=== PATIENT | female | born 1935 | race Caucasian/White ===

== ENCOUNTER 2017-01-08 10:02 | Inpatient (IN) | payer MEDICARE ==
[~2017-01-08] VITALS: Ht 162.6 cm; Wt 99.6 kg
[2017-01-08 12:00] VITALS: BP 109/65; PULSE 93; RESP 23; O2SAT 92
[2017-01-08 12:12] VITALS: PULSE 86
[2017-01-08] MEDS ORDERED: Ondansetron 2 mg/mL 2 mL Inj IVPUSH PRN (12:50)
[2017-01-08] MEDS ORDERED: Polyethylene Glycol (PEG) 17 Gm Powder PO PRN (12:50)
[2017-01-08] MEDS ORDERED: Alum-Mag Hydrox-Simeth 30 mL Suspension PO PRN (12:50)
--- NOTE | 2017-01-08 12:59 | PCM.HPMED ---
Subjective Date of Service January 08, 2017 Primary Provider: Admitting Physician: Roderick Levine DO Primary Care Physician: Bari Monson MD Attending Physician: Roderick Levine DO Chief Complaint: Need for dialysis History of Present Illness: 81 yo F presenting on transfer from [facility] following admission for mastectomy revision which was complicated by cardiac arrest and subsequent renal failure. Patient was initially started on epinephrine, and subsequently dopamine, both of which and effectively controlled blood pressures then led to development of ventricular tachycardia. She was additionally noted over the past 2 days to have progressively worsening renal function, brought to transition to dobutamine which was effective in controlling blood pressure without complicating arrhythmia but has not appeared to have increased urine output as of yet. Due to this [facility]'s on-call caseworker protective services Dr. Zavala was contacted and recommended transfer to [facility] for possible hemodialysis should renal function continue to worsen. Patient arrived to hospital in stable condition, still on dobutamine drip in addition to heparin drip started 2 days prior following cardiac arrest. He has no complaints at this time aside from shortness of breath, present at baseline but a little worse than usual. She also notes being a little more tired than her usual self but overall feeling relatively well. Patient additionally suffer CHF at baseline, but has ECHO as part of pre- surgical screening demonstrating normal EF, subsequent to cardiac arrest repeat echo demonstrated an EF reduced to 20%. Dr. Johnson reviewed Echo and Dr Reddy subsequently evaluated patient. In spite of elevated troponin values, it was felt global ischemia rather than ACS was to account for this, and medical management with Heparin drip was recommend. Furthermore the trademark attorney at [place] did not deem patient is a candidate for catheterization, even should this be indicated. Conversation with transferring hospitalist from [place] Dr. Calderon, indicated plan was for ~48 hours of Heparin therapy prior to DC, which would be concluding this afternoon. Review of Systems: 10 point review of systems was conducted and entirely negative excepting pertinent positives and negatives included in above history of present illness Allergies Coded Allergies: gabapentin (Verified Allergy, Intermediate, diarreha, 01/08/17) codeine (Verified Allergy, Unknown, SLEEPY, 06/17/09) procaine (Verified Allergy, Unknown, NEAR-SYNCOPE, 06/17/09) Uncoded Allergies: CORTISONE (Allergy, Unknown, PASS OUT, 06/17/09) Home Medications Carvedilol 3.125mg PO BID Combivent 2 puffs 4 times daily PRN Estradiol 0.025mg patch weekly Lisinopril 5mg PO daily Torsemide 100mg PO BID Prilosec 20mg PO daily Triazolam 0.25mg 1/2 tab PO QHS Warfarin 2.5mg except Mondays and Fridays PMH Atrial Fibrillation CAD CHF Pulmonary hypertension Poliomyolitis Breast cancer GERD Surgical History Cataract surgery Tonsillectomy Adendectomy Right mastectomy 1968 Left Mastectomy 07/2016 Dilation of esophageal stricture after GERD Appendectomy Hysterectomy and mass excision from the Back Family History Mother has breast cancer, patient had breast cancer prior to her mother's development. Social History Hx Alcohol Use: No Hx Substance Use: No Hx Tobacco Use: No Smoking Status: Never Smoker Living Arrangement: with Family Exam Vital Signs Vital Sign - Last Date Time Temp Pulse Resp B/P Pulse Ox O2 Delivery O2 Flow Rate FiO2 01/08/17 12:12 86 01/08/17 12:00 36.4 23 109/65 92 Nasal Cannula 2.00 General: Alert, Oriented X3, Cooperative, Mild Distress Eyes: PERRLA, EOMI Mouth: Mucous Membranes Dry, Other (there is some bruising erythema posterior pharynx likely secondary to intubation) Chest & Lungs: Coarse breath sounds, Other (good airflow noted in all lung fitch no wheezing crackles or rhonchi noted. Chest wall demonstrating bilateral deformity due to previous mastectomy. Right side is concave with pectoralis muscles removed, no open lesions or signs of infection. Left side is now status post failed mastectomy with drain in place surgical closure covered by clean dry dressing. All this for small amount of serosanguineous liquid.) Cardiovascular: Other (borderline rate of around 100 bpm irregular rhythm) Abdomen: Non-tender, Other (mildly distended without organomegaly. No guarding ) Extremities: No cyanosis/clubbing/edma bilat Neurological: Grossly Neurologically Intact Assessment & Plan 81-year-old female past medical history significant atrial fibrillation, CHF, ulnar hypertension in addition to breast cancer bilaterally with recent revision of mastectomy complicated by cardiac arrest, hypotension, and subsequent acute renal failure admitted on transfer from [facility] for further medical management and possible dialysis should renal function continued to decline. #. Cardiac arrest/ cardiogenic shock - Before meals status post intubation, pressure trials with epinephrine and dopamine prior to stabilization on dobutamine which is continued at time of admission - Patient previously intubated now saturating well on room air with minimal submental oxygen support - Continue dobutamine at this time with plan to wean to goal map of 60-65 may be discontinued at that time should this be achieved. - Patient had been started on heparin drip at time of arrest, now 48 hours since initiation, held at this time. Cardiology is consulted, Dr Andrade to evaluate patient, awaiting further recommendation. - Heparin drip is still active at time of admission, however as per transferring physician was to be continued only 48 hours on trademark attorney recommendation which will be completed this afternoon. #. Acute on chronic renal disease - Patient reported baseline is a creatinine of approximately 1.5, currently upper trending to 3.2 based on history awaiting records confirmation during time of admission. - We will continue dobutamine at this time plan to taper off with stable blood pressure - Dr. Zavala has except a consult and will evaluate patient further to consider additional interventions - Avoid nephrotoxic agents at this time, hold patient's home lisinopril. #. Congestive heart failure with acute reduced ejection fraction - Continue home medications accepting ACEi, Heparin active with transport now held. - Plan to restart Coumadin therapy with if Heparin to be discontinued - Cardiology consult ordered and pending, appreciate recommendations. - Diuresis to be considered as needed - Supplemental oxygen therapy as needed #Atrial fibrillation - Patient is now essentially rate controlled even with use of pressor agent - Continue home medications at this time - Monitor on continuous telemetry - Restart Warfarin per pharmacy as noted above #Breast cancer status post recent left revision of mastectomy - Drain remains in place, small amount of serosanguineous fluid draining. - We will consider further surgical consultation if needed, awaiting complete records from [facility] to determine surgical recommendations. Pain Evaluation: Adequate Pain Control VTE Prophylaxis: Sub-Q Heparin (Unfractionated), Other (currently on heparin drip, will continue subcutaneous heparin following discontinuation. ) Resuscitation Status: CPR: Attempt Resuscitation Time spent 65 minutes Roderick Levine DO January 08, 2017 12:59
[2017-01-08] MEDS ORDERED: Heparin 25,000 Unit/500 mL 0.45% NS Premix IV ONE (13:26)
[2017-01-08] MEDS ORDERED: TORS5TAB5 PO (13:29)
[2017-01-08] MEDS ORDERED: LISI-571 PO (13:29)
[2017-01-08] MEDS ORDERED: CARV3.122 PO (13:29)
[2017-01-08] MEDS ORDERED: TORS100T3 PO (13:29)
[2017-01-08] MEDS ORDERED: ESTR1PAT80 TRANSDERM (13:29)
[2017-01-08] MEDS ORDERED: IPRA4AER IH (13:29)
[2017-01-08] MEDS ORDERED: WARF2.5T82 PO (13:31)
[2017-01-08] MEDS ORDERED: OMEP20TA24 PO (13:31)
[2017-01-08] MEDS ORDERED: TRIA0.2525 PO (13:31)
[2017-01-08] MEDS ORDERED: DORZ10DR20 OP (13:48)
[2017-01-08] MEDS ORDERED: LATA2.5D6 OP (13:48)
[2017-01-08] MEDS: HYDROcodone-APAP 5-325 mg Tablet PO PRN ×2 (15:02→22:10)
[2017-01-08] MEDS ORDERED: Bumetanide 0.25 mg/mL 4 mL Inj IV ONE (16:25)
[2017-01-08 16:35] VITALS: BP 129/79; PULSE 98; RESP 24; O2SAT 98
[2017-01-08 16:57] LABS: BASOPHILS % (AUTO) 0.2 % (0-3); EOSINOPHILS % (AUTO) 0.3 % (0-5); MONOCYTES % (AUTO) 16.1 % (4-12); Mean Corpuscular Hemoglobin 29.8 pg (27.0-35.0); Mean Corpuscular Volume 96.8 fL (81-100); NEUTROPHILS % (AUTO) 78.9 % (40-74); Platelet Count 113 bil/L (150-400)
[2017-01-08 17:31] LABS: Phosphorus 4.6 mg/dL (2.5-4.9)
--- NOTE | 2017-01-08 17:36 | DRSVH ---
PROCEDURE: X-RAY CHEST ONE VIEW, PORTABLE ([id number]) INDICATIONS: CHF TECHNIQUE: One view of the chest was acquired. COMPARISON: None. FINDINGS: Surgical changes and devices: Right-sided PICC line is with distal tip overlying the proximal SVC. Lungs and pleura: Bilateral costophrenic angle blunting is present. Chronic interstitial changes are present. There is a mild appearance of increased pulmonary vascularity. Mediastinum: Mediastinal contours appear normal. Heart size is enlarged. Bones and chest wall: No suspicious bony lesions. Overlying soft tissues appear unremarkable. IMPRESSION: Mild increased pulmonary vascularity with trace effusions suggestive of edema. Cardiomega ly is present. Dictated by: Kristen Augustin M.D. on 01/08/2017 at 17:34 Approved by: Kristen Augustin M.D. on 01/08/2017 at 17:35
[2017-01-08 17:45] LABS: TROPONIN T 0.132 ug/L (0.0-0.011)
[2017-01-08 18:19] LABS: INR 1.51 ratio
--- NOTE | 2017-01-08 18:25 | PCM.CHPCAR ---
Consult Subjective Date of service January 08, 2017 Date of admit January 08, 2017 at 12:18 Provider Requesting Consult Requesting Provider: Roderick Levine DO Primary Care Physician Primary Care Physician: Bari Monson MD Chief Complaint Cardiac arrest History of Present Illness This is a very pleasant 81-year-old female with history of paroxysmal atrial fibrillation, polymyositis. She denies she has any history of coronary disease or congestive heart failure. However she does take chronic high dose of torsemide on a daily basis. She is on warfarin for her atrial fibrillation. She sees a air gun operator at [facility]. She was last seen by him about a week before her elective surgery for reconstructive surgery of her left status post mastectomy. The patient apparently had an echocardiogram prior to her surgery and she was told that her heart function was normal. The patient denied any history of PND, orthopnea, but did have some slight worsening of her lower extremity edema just prior to her surgery. She also denied any chest pain or exertional shortness of breath just prior to her surgery. She states that she was feeling pretty well. The patient is recently had her mastectomy back in July 2016 without any complications. The patient went for her reconstructive surgery of her skin fold of the left axilla. During her surgery she apparently developed severe bradycardia and became pulseless. CPR was initiated and the patient's pulses were restored. Her wound area was then rapidly close but toward the end of the surgery she developed another episode of bradycardia and required chest compressions and additional medical therapies. At this time I do not have access to the anesthesiologist notes her EKG strips. Her pulse was regained with a heart rate of 50 bpm. Hospitalist was consulted and the patient was transferred to ICU. Apparently the patient was placed on epinephrine drip and she was continued on ventilation. An echocardiogram was performed which apparently was a poor quality echocardiogram. Nevertheless there appear to be a severe reduction in her left ventricular systolic function with an estimated ejection fraction of 20%. The right ventricle was not clearly visualized but appear to be dilated with reduced right ventricular systolic function. She has no significant valvular disease except for moderate tricuspid regurgitation. There is evidence for severe right ventricular systolic pressures with estimated RV systolic pressures estimated at 75 mmHg. Again I do not have any prior echocardiogram for comparison. Apparently she developed significant arrhythmias with norepinephrine and she was started on or switched over to dobutamine. Since then she has maintained pretty good blood pressure and her atrial fibrillation has been fairly controlled. Unfortunately she has developed acute renal failure most likely related to her transient severe hypotension and decreased cardiac output. She is been seen by her help desk operator and apparently she has been informed that they will continue to watch and see and decide if she needs to have hemodialysis. Patient appears to be very comfortable at this point in time. She is able to converse in complete sentences and has no complaints at this time. We will try and obtain her EKGs around the time of her CPR. We will also try to obtain more notes from her prior air gun operator at [facility]. Review of Systems Review of Systems CONSTITUTIONAL: Negative for fever, weight loss or weight gain. HEENT: Eyes: Negative for glaucoma or cataracts. Ears: Negative pain or loss of hearing. Nose: Negative for nasal congestion. Negative for rhinorrhea or postnasal drip. Mouth: Negative for false teeth. Throat: Negative for masses or hoarseness. Negative for snoring. CARDIOVASCULAR: Negative for chest pain or palpitations, near syncope, syncope, PND, or orthopnea. RESPIRATORY: Negative for shortness of breath, hemoptysis, COPD, cough. GASTROINTESTINAL: Negative for nausea, vomiting, diarrhea or heartburn. GENITOURINARY: Negative for dysuria. MUSCULOSKELETAL: Positive for osteoarthritis. SKIN: Negative for rashes. NEUROLOGIC: Negative for headaches, blurry vision, CVA, mental status changes. PSYCHIATRIC: Negative for depression. Negative for daytime sleepiness or insomnia. ENDOCRINE: Negative for diabetes or thyroid abnormalities. HEMATOLOGIC: Positive for anemia. PMH Past Medical History 1. Atrial fibrillation 2. Outside notes from [facility] suggest she has history of coronary artery disease and congestive heart failure but she denies having these. 3. Hypertension 4. COPD 5. GERD Past Surgical History 1. Cataract surgery 2. Tonsillectomy and adenoidectomy 3. Right mastectomy in 1967 4. Left mastectomy in July 2016 5. Dilatation of esophageal stricture 6. Appendectomy 7. Hysterectomy 8. Mass excision from the back Scheduled Albuterol/Ipratropium (Combivent Respimat Inhal Novi) 120 Spr/4 Gm Inhaler 1 PUFF IH QID (Reported) Carvedilol (Carvedilol) 3.125 Mg Tablet 3.125 MG PO BID (Reported) Dorzolamide HCl/Timolol Maleat (Dorzolamide-Timolol Eye Drops) 10 Ml Drops 1 GTT OP BID (Reported) Latanoprost (Latanoprost) 2.5 Ml Drops 1 GTT OP HS (Reported) Lisinopril (Lisinopril) 5 Mg Tablet 5 MG PO DAILY (Reported) Omeprazole Magnesium (Prilosec Otc) 20 Mg Tablet.dr 20 MG PO DAILY (Reported) Torsemide (Torsemide) 100 Mg Tablet 100 MG PO BID (Reported) Warfarin Sodium (Warfarin Sodium) 2.5 Mg Tablet 2.5 MG PO DAILY (Reported) Scheduled PRN Triazolam (Triazolam) 0.25 Mg Tablet 0.25 MG PO HS PRN PRN sleep (Reported) Discontinued Medications Estradiol 0.025 mg/24 hr Patch (Estradiol 0.025 mg/24 hr Patch) 1 Each Patch.tdwk 1 PATCH TRANSDERM WEEKLY (Reported) Torsemide (Torsemide) 5 Mg Tablet 5 MG PO DAILY (Reported) Current Inpatient Medications Current Medications Al Hydrox/Mg Hydrox/Simethicone 30 ml Q6H PRN PO; Start 01/08/17 at 12:50 Ondansetron HCl 4 to 8 mg Q4H PRN IVPUSH; Start 01/08/17 at 12:50 Senna 17.2 mg BID PRN PO; Start 01/08/17 at 12:50 Polyethylene Glycol 17 gm DAILY PRN PO; Start 01/08/17 at 12:50 Acetaminophen/ Hydrocodone Bitart 1-2 TABS Q4H PRN PO Last administered on 01/08t 15:02; Admin Dose 1 TABLET; Start 01/08/17 at 12:50 Morphine Sulfate 1-2 mg Q4H PRN IV; Start 01/08/17 at 12:50 Albuterol/ Ipratropium 3 ml QIDRT NEB; Start 01/08/17 at 16:00 Carvedilol 3.125 mg BID PO; Start 01/08/17 at 20:30 Dorzolamide/ Timolol 1 drp BID BOTH_EYES; Start 01/08/17 at 20:30 Latanoprost 0.067 drop HS BOTH_EYES; Start 01/08/17 at 21:00 Pantoprazole 20 mg 0630 PO; Start 01/09/17 at 06:30 Torsemide 100 mg BID PO; Start 01/08/17 at 20:30; Stop 01/08/17 at 20:30; Status DC Temazepam 15 mg 15 mg HS PRN PO; Start 01/08/17 at 15:45 Dobutamine HCl/ Dextrose/Premix 250 ml @ 7.2 mls/hr Q24H IV; Start 01/08/17 at 17:10 Pharmacy Consult 1 ea DAILY@17 XX; Start 01/09/17 at 17:00 Allergies: Coded Allergies: gabapentin (Verified Allergy, Intermediate, diarreha, 01/08/17) codeine (Verified Allergy, Unknown, SLEEPY, 06/17/09) procaine (Verified Allergy, Unknown, NEAR-SYNCOPE, 06/17/09) Uncoded Allergies: CORTISONE (Allergy, Unknown, PASS OUT, 06/17/09) Family History Family History Noncontributory Social History Hx Alcohol Use: NoAlcoholic Drinks Per Day: ONEHx Substance Use: NoHx Tobacco Use: No Smoking Status: Never Smoker Living Arrangement: with Family Other ( and has 3 daughters and one stepson and one stepdaughter) Exam Vital Signs Vital Sign - Last Date Time Temp Pulse Resp B/P Pulse Ox O2 Delivery O2 Flow Rate FiO2 01/08/17 16:35 36.7 98 24 129/79 98 Nasal Cannula 2.00 General: Pleasant Cooperative Mildly obese Skin: Warm & dry to touch Head: Normocephalic Eye: EOMS intact No arcus or xanthelasma Neck: Nuchal obesity:JVP assess difficult Ears, Nose & Throat: Ears no gross abnormalities Nose no gross abnormalities Chest: Clear auscultation w/o rales/wheeze Cardiac: Irregularly irregular rhythm Systolic murmur Pulses: Pulses full/equal all extremities Abdomen: Soft, non-distended, non-tender Obese Extremities: Warm w/o deformities,erythema noted Neurological: Alert & oriented No gross motor or sensory deficits Psychological: Affect & interaction appropriate Lab and Diagnostics Result Diagram: 01/08/17 1649 01/08/17 1649 Assessment & Plan Problems: (1) Cardiac arrest as complication of care Plan: Resolved but etiology still unknown. It is possibility that she probably does have chronic systolic heart failure that she is not fully aware of. We are in the process of trying to obtain more information from her primary air gun operator from [facility]. She also has right systolic heart failure with severe pulmonary hypertension. According to notes she has history of chronic pulmonary hypertension but again I am not sure if this is acute on chronic versus just chronic pulmonary hypertension. If she does have chronic and severe pulmonary hypertension she is probably preload dependent and sometimes these patients can become significantly hypotensive with general anesthesia. She does not give much in way of any symptoms prior to her surgery that was suggest pulmonary embolism. She was on warfarin prior to her surgery but was placed on hold prior to her surgery. But, certainly this should be part of the differential diagnosis. She is saturating quite well on room air. Less likely that this is acute coronary syndrome. Her elevated troponins are most likely a result of her acute renal failure and demand ischemia. She has no EKG changes and denies any chest pain prior or after her CPR. Echo report makes no mention of focal wall motion abnormalities. Status: Acute ICD Code: XSP0115 (2) Acute systolic heart failure Plan: Unfortunately we still do not have all of her information. It is possible that she has had chronic systolic heart failure with acute on chronic congestive heart failure. Will need to try to get more from administration from her previous air gun operator at [facility]. We are trying to obtain the anesthesiologist's notes an EKG strips during the event. Right now she appears to be tolerating low-dose dobutamine infusion to maintain him a pretty good MAP. I will hold off of any of her blood pressure medications for now. Status: Acute ICD Code: I50.21 (3) Elevated troponin Plan: Most likely result of stress-induced and acute renal failure. Status: Acute ICD Code: R74.8 (4) Acute renal failure due to tubular necrosis Plan: Most likely is acute tubular necrosis secondary to hypotension during multiple CPRs. Hopefully this will correct itself over the next 2-3 days. Tar Heat Exchanger Cleaner is following. Status: Acute ICD Code: N17.0 (5) Atrial fibrillation Qualifiers: Atrial fibrillation type: paroxysmal Qualified Code: I48.0 - Paroxysmal atrial fibrillation Plan: Plan to restart warfarin. Status: Chronic ICD Code: I48.91 Pain Evaluation: Adequate Pain Control VTE Prophylaxis: Sub-Q Heparin (Unfractionated), Other (currently on heparin drip, will continue subcutaneous heparin following discontinuation. ) Resuscitation Status: CPR: Attempt Resuscitation Time spent 80 minutes David Andrade MD January 08, 2017 18:25
[2017-01-08 19:34] VITALS: BP 117/44; PULSE 85; RESP 27; O2SAT 96
[2017-01-08] MEDS: Albuterol-Ipratropium 3 mL Inhalation Solution NEB SCH (20:00)
[2017-01-08] MEDS: Timolol-Dorzolamide 10 mL Ophthalmic Solution BOTH_EYES SCH (20:12)
[2017-01-08] MEDS: DOBUTamine 500 mg/250 D5W 500,000 MCG in IV Premix 1 EACH IV SCH (20:14)
[2017-01-08 21:31] LABS: APPEARANCE,URINE CLOUDY (CLEAR,HAZY); COLOR,URINE BLOODY (YELLOW); OCCULT BLOOD,URINE LARGE (NEGATIVE); PH,URINE 6.5 (5.0-8.0)
[2017-01-08 23:26] VITALS: BP 120/91; PULSE 91; RESP 23; O2SAT 97
[2017-01-09] VITALS (14 sets, daily range): BP systolic 101–119; BP diastolic 44–68; PULSE 63–126; RESP 19–25; O2SAT 92–100
[2017-01-09] MEDS: Pantoprazole 20 mg ER24 Tablet PO SCH (05:57)
[2017-01-09] MEDS ORDERED: Bumetanide 0.25 mg/mL 4 mL Inj IV ONE (06:00)
--- NOTE | 2017-01-09 06:42 | NUR ---
Cardiac/Pain Pt reports chest pain tolerable after dose of Vicodin. Pt slept most of the night after Vicodin. Left chest dressing changed with moderate amount of sanguineous drainage. Moderate amount of drainage on the pad as well. LIZZIE drain has only 15 cc output of yellow drainage with few blood clots. Jaeger patent with 60 cc of dark red urine noted. Dobutamine at 2 mcg/kg/min. Sbp in low 100s-120s and DBP 40s-60s. Map >60. 02sat in mid 90s with 3L. Temp Max 37.4.
--- NOTE | 2017-01-09 06:52 | CONS ---
[address] [address] CONSULTATION REPORT PATIENT: JUAN F SELLERS : 1935 MR#: [id number] ADMIT: 01/08/2017 JOB ID: [id number] NEPHROLOGY CONSULTATION: DATE OF SERVICE: 01/08/2017 REQUESTING PHYSICIAN: Roderick Levine MD REASONS FOR CONSULTATION: Management of acute kidney injury. CHIEF COMPLAINT: Abnormal kidney function. Transferred from [facility]. PRESENT ILLNESS: This is a very pleasant, 81-year-old, lady, with significant past medical history of atrial fibrillation, hypertension, chronic lung disease, who was transferred from [facility] for a higher level of care. The patient was admitted at [facility] for reconstruction of the left breast given history of painful skin fold of the left axilla. She underwent this surgery on January 06, 2017. At the end of the surgery, the patient developed severe bradycardia. CPR was initiated. They were able to get her pulse back. Unfortunately, she had a 2nd cardiac arrest and the 2nd CPR was resumed. The patient afterwards was transferred to the intensive care unit. Apparently, echocardiogram shows severe left ventricular systolic dysfunction with ejection fraction of 20%. Also noted to have a dilated right ventricle with reduced right ventricular systolic function, severe biatrial enlargement, moderate tricuspid regurgitation. I discussed with the hospitalist. The patient initially was placed on epinephrine. Later on, she developed arrhythmia, and then switched to dopamine. She was unable to tolerate the dopamine. She had irregular heart rhythm. She was then switched to dobutamine. Fortunately, they were able to maintain her blood pressure. I was contacted by the hospitalist yesterday given episode of acute kidney injury. Her initial serum creatinine prior to the surgery was 1.5, and today it pawan to 3.1. She has become anuric over the past 48 hours. The patient is not aware of having kidney disease. She has a history of high blood pressure. According to her medication list, is on high-dose diuretics, torsemide 100 twice a day. She reported that she has a history of leakage valve. Prior to the surgery, she was told that she had normal heart function. After the episode of cardiac arrest, troponin was checked and it was found to be elevated, peaked at around 2. The patient was started on IV heparin drip. However, the reason of being on heparin is not clear but concerning of ischemic process. During my visit, the patient seems comfortable. Family is at the bedside. She is currently on 2 L nasal cannula with good oxygenation at 98% pulse ox. The patient denied chest pain, shortness of breath. No nausea, vomiting. No fever, no chills. Jaeger catheter was inserted since the hospitalization at [facility]. She was found to have dark gross hematuria. PAST MEDICAL HISTORY: 1. Atrial fibrillation. 2. Valvular heart disease (TR). 3. Breast cancer. 4. Hypertension. 5. Chronic lung disease, per patient, she stated that she had history of asthma, ? burrell's lung disease. 6. GERD. SURGICAL HISTORY: 1. Status post right mastectomy in 1967. 2. Status post left mastectomy in July 2016. 3. Status post appendectomy. 4. Tonsillectomy. 5. Cataract surgery. 6. Dilatation of esophageal stricture of the GERD. FAMILY HISTORY: Positive for breast cancer in the family, and CVA. SOCIAL HISTORY: Denies current use of alcohol, tobacco, or illicit drugs. MEDICATIONS: Carvedilol, Combivent, estradiol, lisinopril, torsemide, Prilosec, Warfarin. ALLERGIES: CORTISONE, CODEINE, GABAPENTIN. REVIEW OF SYSTEMS: A 14 point review of systems was performed. PHYSICAL EXAM: Vitals: Temperature 37.4, pulse 85, respiratory rate 27, blood pressure 117/44, O2 sat is 96% on nasal cannula. General appearance: Awake, alert, oriented x3. In no acute distress. HEENT : Mild pallor. No jaundice. No JVD. No lymphadenopathy. No thyroid enlargement. Heart: Irregular rhythm, tachycardic. Variable S1 systolic murmur noted. Lungs: Good air entry bilaterally. No wheezing. No rhonchi. Decreased breath sounds at bases. Abdomen: Soft, mild distention, nontender. Obese. Active bowel sounds. No hepatosplenomegaly. Extremities: Trace edema on the lower extremities. Good pedal pulses. Skin: Surgical scar noted on both upper chest. LIZZIE drain noted on the left breast. LABORATORY: WBC 10.6, hemoglobin 9.4, platelets 113. Sodium 131, potassium 4.8, chloride 95, bicarb 22, BUN 49, creatinine 3.43, sugar 136. ASSESSMENT: 1. Acute kidney injury secondary to ischemic acute tubular necrosis (ATN). 2. Status post cardiac arrest, etiology to be determined. The patient has been evaluated by a sterilization specialist. 3. Acute systolic heart failure with ejection fraction of 20%. 4. Hyponatremia. 5. Elevation of serum troponin. 6. History of atrial fibrillation. 7. History of valvular heart disease. Per renal standpoint, I will challenge with IV Bumex 2 mg x1 to see if it will enhance her urine output. Continue to maintain mean arterial pressure above 65 mmHg. Since her condition is stable, there is no indication for emergency dialysis. We will continue to monitor her volume status on a daily basis. We will repeat her renal panel in the morning. Avoid nephrotoxins, and renally dose medications. I will repeat kidney sonogram and will flush her Jaeger catheter. Thank you for allowing me to participate in the care of your patient. We will monitor along with you. LISAD
[2017-01-09] MEDS: Albuterol-Ipratropium 3 mL Inhalation Solution NEB SCH ×4 (07:00→16:09)
--- NOTE | 2017-01-09 07:09 | NUR ---
Fever/Pain/Chills Temp max 39.4. Pt started having chills and shivering this am. Md made aware with new order. Tylenol given. Temp down to 38.2 at this time. Ice pack and cold compress done. Morphine given for abd pain with some effectiveness per patient. She reported better pain relief and was comfortable after Toradol dose. Telemetry SR 80s during the evening. Pt started getting tachycardia with HR in low 100s-110s this am. Family at bedside.
[2017-01-09] MEDS: Timolol-Dorzolamide 10 mL Ophthalmic Solution BOTH_EYES SCH ×2 (07:56→22:28)
[2017-01-09 08:20] LABS: MONOCYTES % (AUTO) 17.3 % (4-12); Mean Corpuscular Hemoglobin 30.1 pg (27.0-35.0); Mean Corpuscular Volume 96.3 fL (81-100); NEUTROPHILS % (AUTO) 74.3 % (40-74); Platelet Count 114 bil/L (150-400)
[2017-01-09 08:21] LABS: BASOPHILS % (AUTO) 0.1 % (0-3); EOSINOPHILS % (AUTO) 0.8 % (0-5)
[2017-01-09 09:35] LABS: INR 1.63 ratio
--- NOTE | 2017-01-09 10:31 | PCM.PHAPRO ---
Progress Cardiac arrest Date January 09-December INR 1.5 1.63 INR change 0.13 Warf Dose 2.5 MG 2.5 Chaz Doe Pharm.D January 09, 2017 10:31
[2017-01-09] MEDS ORDERED: Albuterol 1.25 mg/3 mL Inhalation Solution NEB PRN (11:10)
[2017-01-09] MEDS ORDERED: Albuterol 2.5 mg/3 mL Inhalation Solution NEB PRN (11:45)
--- NOTE | 2017-01-09 11:58 | PCM.PNMED ---
Subjective Date of Service January 09, 2017 Subjective Shonna Buckley is an 81-year-old woman with past medical history significant atrial fibrillation, CHF, pulmonary hypertension in addition to breast cancer bilaterally with recent revision of mastectomy complicated by cardiac arrest, hypotension, and subsequent acute renal failure admitted on transfer from [facility] for further medical management and possible dialysis should renal function continued to decline. Currently under treatment for cardiogenic shock and acute renal failure. Hospital day #2. Overnight: The patient had one episode of fever. Today: The patient states she felt very short of breath this morning. She normally uses albuterol up to 4 times a day when she become short of breath. She has a cough, but this is chronic for her. She denies any dysuria. She notes a weaker appetite. The remainder of the review of systems is negative except as noted above. Exam Vital Signs Vital Sign - Last Date Time Temp Pulse Resp B/P Pulse Ox O2 Delivery O2 Flow Rate FiO2 01/09/17 07:45 89 19 100 Nasal Cannula 2.00 01/09/17 07:41 36.7 115/59 Intake and Output 01/08/17 01/08/17 01/09/17 Cumulative From/Thru 15:00 23:00 07:00 01/08/17 12:36 - 01/09/17 06:50 Intake Total 367 ml 320 ml 687 ml Output Total 70 ml 75 ml 145 ml Balance 297 ml 245 ml 542 ml Intake Oral 250 ml 200 ml 450 ml IV Total 117 ml 120 ml 237 ml Output Urine Total 50 ml 60 ml 110 ml Drainage Total 20 ml 15 ml 35 ml Exam General: Alert, Oriented X3, Cooperative, in no acute distress, laying comfortably in a hospital bed. Eyes: PERRLA, EOMI Mouth: Mucous Membranes moist Chest & Lungs: Clear to auscultation bilaterally, Chest wall demonstrating bilateral deformity due to previous mastectomy. Right side is concave with pectoralis muscles removed, no open lesions or signs of infection. Left side is now status post failed mastectomy with drain in place surgical closure covered by clean dry dressing. All this for small amount of serosanguineous liquid. Cardiovascular: irregular rhythm, mildly tachycardic rate. No murmurs. Abdomen: Non-tender, Other (mildly distended without organomegaly. No guarding) Extremities: No cyanosis/clubbing/edma bilat Neurological: Grossly Neurologically Intact IVs and Medications Medications Reviewed: Medications were reviewed in detail Lab and Diagnostics Result Diagram: 01/09/17 0600 01/09/17 0600 X-Rays, CTs and MRIs X-RAY CHEST ONE VIEW, PORTABLE IMPRESSION: Mild increased pulmonary vascularity with trace effusions suggestive of edema. Cardiomegaly is present. Dictated by: Kristen Augustin M.D. on 01/08/2017 at 17:34 Assessment & Plan Shonna Buckley is an 81-year-old woman with past medical history significant atrial fibrillation, CHF, pulmonary hypertension in addition to breast cancer bilaterally with recent revision of mastectomy complicated by cardiac arrest, hypotension, and subsequent acute renal failure admitted on transfer from [facility] for further medical management and possible dialysis should renal function continued to decline. Currently under treatment for cardiogenic shock and acute renal failure. Hospital day #2. Cardiac arrest complicated by cardiogenic shock inotrope dependent, present on admission, active. - Continue dobutamine at this time with plan to wean to goal map of 60-65 may be discontinued at that time should this be achieved. - Patient had been started on heparin drip at time of arrest, completed 49 hours. - Cardiology is consulted, Dr Andrade to evaluate patient, awaiting further recommendation. - Consider repeat ECHO in next couple of days Acute on chronic renal failure, present no admission, worsening - Patient reported baseline is a creatinine of approximately 1.5 - We will continue dobutamine at this time plan to taper off with stable blood pressure - Dr. Zavala has except a consult and will evaluate patient further to consider additional interventions - Avoid nephrotoxic agents at this time, hold patient's home lisinopril. - Likely patient will required dialysis in the next few days. However given her unchanged pressor requirement Dr. Zavala will hold off on initiating SUPERVISOR CARTOGR[employer]HY today. Congestive heart failure with acute reduced ejection fraction, present on admission, ongoing - Continue home medications accept ACEi - Coumadin restarted - Cardiology consult ordered and pending, appreciate recommendations. - Diuresis to be considered as needed - Supplemental oxygen therapy as needed Atrial fibrillation, present on admission, ongoing - Patient is now essentially rate controlled even with use of pressor agent - Continue home medications at this time - Monitor on continuous telemetry - Restart Warfarin per pharmacy as noted above Breast cancer status post recent left revision of mastectomy, present on admission, ongoing - Drain remains in place, small amount of serosanguineous fluid draining. - We will consider further surgical consultation if needed, awaiting complete records from [facility] to determine surgical recommendations. Fever, one episode of elevated temp at 39.4, not present on admission -Patient does not appear infected. No symptoms noted. White count not elevated. -Procalcitonin will be of minimal use in the setting of severe renal failure. -Will continue to monitor and consider antibiotics Disposition: Anticipate patient will be in the hospital for another 2-3 days as she is evaluated and treated for the above conditions. VTE Prophylaxis: Sub-Q Heparin (Unfractionated), Other (currently on heparin drip, will continue subcutaneous heparin following discontinuation. ) Resuscitation Status: CPR: Attempt Resuscitation Time spent 30 minutes Attending Statement I have seen and evaluated patient at bedside in addition to directly supervising care provided by resident physician. I agree with above documentation Fever of 39.4 is reported to nursing note however vital sign history reports a temperature of 37.4, unable to confirm this as it was recorded by overnight nurse. Indocin given patient's nontoxic appearance, and no evidence of acute infection, we will continue to monitor but will not consider antibiotic therapy at this point. Additionally regarding incisional site and continued drainage, evaluation of the site diverticula small amount of bleeding which I do not believe to pose any real threat to hemodynamic instability, nonetheless given displays staple we will consult general surgery further violation and consideration of further intervention. Awa Murray DO January 09, 2017 11:05 Roderick Levine DO January 09, 2017 14:55
[2017-01-09] MEDS ORDERED: BECL8.7A5 INHALATION (12:41)
--- NOTE | 2017-01-09 13:01 | PCM.PNNEPH ---
Subjective Date of Service January 09, 2017 Subjective Patient reports shortness of breath. She said that she needed her inhaler. She remains well oxygenated. Oliguric noted. Serum creatinine keeps rising, 4.04. Dobutamine 2 g per KG per minute. MAP > 65. Pain controlled. Exam Vital Signs Vital Sign - Last Date Time Temp Pulse Resp B/P Pulse Ox O2 Delivery O2 Flow Rate FiO2 01/09/17 11:50 97 21 93 Nasal Cannula 2.00 01/09/17 07:41 36.7 115/59 Intake and Output 01/08/17 01/08/17 01/09/17 Cumulative From/Thru 15:00 23:00 07:00 01/08/17 12:36 - 01/09/17 06:50 Intake Total 367 ml 320 ml 687 ml Output Total 70 ml 75 ml 145 ml Balance 297 ml 245 ml 542 ml Intake Oral 250 ml 200 ml 450 ml IV Total 117 ml 120 ml 237 ml Output Urine Total 50 ml 60 ml 110 ml Drainage Total 20 ml 15 ml 35 ml Exam GA: AAO x3, NAD. HEENT: Mild pallor. No jaundice. No JVD. No lymphadenopathy. No thyroid enlargement. Heart: Irregular rhythm, tachycardic. Variable S1 systolic murmur noted. Lungs: Decreased breath sounds bases, expiratory wheezing noted. Abdomen: Soft, mild distention, nontender. Obese. Active bowel sounds. No hepatosplenomegaly. Extremities: Trace edema on the lower extremities. Good pedal pulses. Skin: Surgical scar noted on both upper chest. LIZZIE drain noted on the left breast. : figueroa cath in place with dark red scant urine. Lab and Diagnostics Result Diagram: 01/09/17 0600 01/09/17 0600 X-Rays, CTs and MRIs X-RAY CHEST ONE VIEW, PORTABLE IMPRESSION: Mild increased pulmonary vascularity with trace effusions suggestive of edema. Cardiomegaly is present. Dictated by: Kristen Augustin M.D. on 01/08/2017 at 17:34 Plan Impression 1. Acute kidney injury secondary to ischemic acute tubular necrosis (ATN). 2. Status post cardiac arrest, etiology to be determined. 3. Acute systolic heart failure with ejection fraction of 20%. 4. Right-sided heart failure, pulmonary hypertension. 5. Hyperkalemia, dilutional hyponatremia. 6. Elevation of serum troponin. 7. History of atrial fibrillation. 8. History of valvular heart disease (TR). 9. Gross hematuria secondary to anticoagulant. Plan: Flush Figueroa catheter. Continue supportive treatment for now. Will challenge again with high-dose IV loop diuretics. If no improvement, will initiate dialysis in the morning. Continue dobutamine to maintain mean arterial pressure above 65 mmHg. Goldie Smith MD January 09, 2017 13:01
--- NOTE | 2017-01-09 14:14 | PCM.PNCARD ---
Subjective Date of service January 09, 2017 Chief Complaint Cardiac arrest History of Present Illness This is a very pleasant 81-year-old female with history of paroxysmal atrial fibrillation, polymyositis. She denies she has any history of coronary disease or congestive heart failure. However she does take chronic high dose of torsemide on a daily basis. She is on warfarin for her atrial fibrillation. She sees a bottom buffer at [facility]. She was last seen by him about a week before her elective surgery for reconstructive surgery of her left status post mastectomy. The patient apparently had an echocardiogram prior to her surgery and she was told that her heart function was normal. The patient denied any history of PND, orthopnea, but did have some slight worsening of her lower extremity edema just prior to her surgery. She also denied any chest pain or exertional shortness of breath just prior to her surgery. She states that she was feeling pretty well. The patient is recently had her mastectomy back in July 2016 without any complications. The patient went for her reconstructive surgery of her skin fold of the left axilla. During her surgery she apparently developed severe bradycardia and became pulseless. CPR was initiated and the patient's pulses were restored. Her wound area was then rapidly close but toward the end of the surgery she developed another episode of bradycardia and required chest compressions and additional medical therapies. At this time I do not have access to the anesthesiologist notes her EKG strips. Her pulse was regained with a heart rate of 50 bpm. Hospitalist was consulted and the patient was transferred to ICU. Apparently the patient was placed on epinephrine drip and she was continued on ventilation. An echocardiogram was performed which apparently was a poor quality echocardiogram. Nevertheless there appear to be a severe reduction in her left ventricular systolic function with an estimated ejection fraction of 20%. The right ventricle was not clearly visualized but appear to be dilated with reduced right ventricular systolic function. She has no significant valvular disease except for moderate tricuspid regurgitation. There is evidence for severe right ventricular systolic pressures with estimated RV systolic pressures estimated at 75 mmHg. Again I do not have any prior echocardiogram for comparison. Apparently she developed significant arrhythmias with norepinephrine and she was started on or switched over to dobutamine. Since then she has maintained pretty good blood pressure and her atrial fibrillation has been fairly controlled. Unfortunately she has developed acute renal failure most likely related to her transient severe hypotension and decreased cardiac output. She is been seen by her field marketing coordinator and apparently she has been informed that they will continue to watch and see and decide if she needs to have hemodialysis. Patient appears to be very comfortable at this point in time. She is able to converse in complete sentences and has no complaints at this time. We will try and obtain her EKGs around the time of her CPR. We will also try to obtain more notes from her prior bottom buffer at [facility]. Constitutional: Denies: Fever, Sweats ENT: Denies: Ear Discharge, Ear Pain, Nose Discharge Cardiovascular: Reports: Irregular Heart Rate, Rapid Heart Rate, Denies: Chest Pain, Edema, SOB on Exertion, SOB while laying flat Respiratory: Denies: Cough, SOB with Exertion, Shortness of Breath, Snoring Gastrointestinal: Denies: Abdominal Pain, Blood in stool (red), Heartburn, Nausea, Vomiting Genitourinary: Reports: Decrease Urinary Output, Hematuria, Denies: Dysuria, No burning or pain with urination Musculoskeletal: Denies: Back Pain, Neck Pain Neurological: Denies: Change in Speech, Confusion, Drooping Mouth, Localized Weakness Endocrine: Denies: Diaphoresis, Urinating Frequently Exam Vital Signs Vital Sign - Last Date Time Temp Pulse Resp B/P Pulse Ox O2 Delivery O2 Flow Rate FiO2 01/09/17 11:50 97 21 93 Nasal Cannula 2.00 01/09/17 07:41 36.7 115/59 Intake and Output 01/08/17 01/08/17 01/09/17 Cumulative From/Thru 15:00 23:00 07:00 01/08/17 12:36 - 01/09/17 06:50 Intake Total 367 ml 320 ml 687 ml Output Total 70 ml 75 ml 145 ml Balance 297 ml 245 ml 542 ml Intake Oral 250 ml 200 ml 450 ml IV Total 117 ml 120 ml 237 ml Output Urine Total 50 ml 60 ml 110 ml Drainage Total 20 ml 15 ml 35 ml General: Pleasant Cooperative Moderately obese Skin: Warm & dry to touch Head: Normocephalic Neck: Nuchal obesity:JVP assess difficult Chest: Clear auscultation w/o rales/wheeze Cardiac: Irregularly irregular rhythm Extremities: Warm w/o deformities,erythema noted Neurological: Alert & oriented Psychological: Affect & interaction appropriate Lab and Diagnostics Labs CBC Test 01/09/17 06:00 White Blood Count 8.9th/mm3 (3.8-10.1) Red Blood Count 2.72mil/mm3 (3.90-5.20) Hemoglobin 8.2g/dL (12.0-15.6) Hematocrit 26.2% (35.0-46.0) Mean Corpuscular Volume 96.3fL (81-100) Mean Corpuscular Hemoglobin 30.1pg (27.0-35.0) Mean Corpuscular Hemoglobin Concent 31.3% (32.0-37.0) Red Cell Distribution Width 14.1% (12.3-15.4) Platelet Count 114bil/L (150-400) Neutrophils (%) (Auto) 74.3% (40-74) Lymphocytes (%) (Auto) 7.3% (14-46) Monocytes (%) (Auto) 17.3% (4-12) Eosinophils (%) (Auto) 0.8% (0-5) Basophils (%) (Auto) 0.1% (0-3) CMP Test 01/08/17 16:49 01/09/17 06:00 Phosphorus Level 4.6mg/dL Magnesium Level 2.0mg/dL Troponin T 0.132ug/L Pro-B-Type Natriuretic Peptide 60081nh/mL Sodium Level 133mEq/L Potassium Level 5.3mEq/L Chloride Level 96mEq/L Carbon Dioxide Level 22mmol/L Blood Urea Nitrogen 54mg/dL Creatinine 4.04mg/dL Estimat Glomerular Filtration Rate 15mL/min Glucose Level 102mg/dL Calcium Level 7.3mg/dL Total Bilirubin 0.5mg/dL Aspartate Amino Transf (AST/SGOT) 258U/L Alanine Aminotransferase (ALT/SGPT) 113U/L Alkaline Phosphatase 86U/L Total Protein 5.6g/dL Albumin 3.1g/dL Result Diagram: 01/09/17 0600 01/09/17 0600 Assessment & Plan Problems: (1) Cardiac arrest as complication of care Plan: Resolved. Stable since arriving from yesterday from [facility]. Trying to obtain anesthesiologist's notes on 01/06 I suspect she is preload dependent 2/2 to chronic severe pulm HTN and right sided HF and after she started on GA, she became hypotensive and bradycardic. However, I would like to make sure she did not experience any high degree AV block during OR which would be an indication for PPM. Status: Acute ICD Code: [id number] (2) Acute systolic heart failure Plan: New onset systolic HF. Continue with Dobutamine infusion for now. Maintain MAP > 60 mmHg for current ARF. Stay away from neprhotoxic meds and continue to hold beta blockers for now. Possibly 2/2 to global ischemic process 2/2 CPR. Reassess with echocardiogram tomorrow and decide on further management and diagnostic studies. Status: Acute ICD Code: I50.21 (3) Elevated troponin Plan: Most likely result of stress-induced and acute renal failure. Significantly anemia so no Plavix or IV heparin. Plus she has hematuria. Continue with small dose aspirin for now and statins. Status: Acute ICD Code: R74.8 (4) Acute renal failure due to tubular necrosis Plan: Most likely is acute tubular necrosis secondary to hypotension during multiple CPRs. Hopefully this will correct itself over the next 2-3 days. Gimp Buttonhole Machine Operator is following. Neprhology is considering hemodialysis tomorrow if no improvement. Status: Acute ICD Code: N17.0 (5) Atrial fibrillation Qualifiers: Atrial fibrillation type: paroxysmal Qualified Code: I48.0 - Paroxysmal atrial fibrillation Plan: Plan to restart warfarin without bridging. Status: Chronic ICD Code: I48.91 Pain Evaluation: Adequate Pain Control VTE Prophylaxis: Sub-Q Heparin (Unfractionated), Other (currently on heparin drip, will continue subcutaneous heparin following discontinuation. ) Resuscitation Status: CPR: Attempt Resuscitation Time spent 30 minutes David Andrade MD January 09, 2017 14:14
--- NOTE | 2017-01-09 15:00 | NUR ---
Surgical Wound Dressing from left mastectomy wound saturated with sanguinous drainage. made aware, new order for surgical consult. Two stapples were added to wound by Dr Ruvalcaba. Wound redress per Dr Ruvalcaba's order. Pt tolerated well. Ongoing care.
--- NOTE | 2017-01-09 15:12 | NUR ---
Social Work: Initial Assessment Data & Assessment: See Initial Assessment. EMR reviewed. Patient is a 81 y/o female that admitted on 01/08/17 with acute chronic renal failure per H&P. SW met with patient and patient's family at bedside to complete initial assessment, SW role reviewed and discharge planning discussed. Patient's PCP is Dr. Bari Richardson and patient's insurance is [facility]. Patient's re-admit score is 2 low risk. Patient does not have any VA or LTC benefits. Patient states that she has an Advance Directive/DPOA. Patient's NOK is her daughter Jamila Dowd [phone]. SW requested a copy. Patient lives at home with her spouse in a one story home with one step to enter. Patient states that her daughter is in town to help for a little while. Patient does drive. Patient walks with a cane, but has a walker if needed. Patient receives oxygen from [employer]. Patient has no or Long-Term Facility history. Patient does not have any current discharge needs or concerns. Patient will likely discharge home no needs via POV. SW provided patient with SW contact information. SW will continue to follow and assist patient throughout stay. Plan: Patient will likely discharge home no needs via POV. SW will continue to follow and assist patient throughout stay. Jordana Hill LMSW, MIKAL Addendum: 01/09/17 at 1526 by JORDANA HILL SS Amended: Links added.
--- NOTE | 2017-01-09 15:18 | DRSVH ---
PROCEDURE: US RENAL SONOGRAM INDICATIONS: MARY CARMEN TECHNIQUE: Real-time scanning was performed of the kidneys and bladder, with image documentation. COMPARISON: None. FINDINGS: Kidneys: Kidneys are normal in size. Right kidney measures 9.1 cm long; left kidney measures 10.9 c m long. Right renal cortical thickness is 1.0 cm; left renal cortical thickness is 1.2 cm. Renal co rtical echotexture is normal. No hydronephrosis or nephrolithiasis. No suspicious solid mass lesion s. There is a 3.5 x 2.6 x 3.1 cm right renal cyst. Bladder: Decompressed by Jaeger catheter. Miscellaneous: No free pelvic fluid. IMPRESSION: No hydronephrosis. Dictated by: Brandi Parra MD, PhD on 01/09/2017 at 15:16 Approved by: Brandi Parra MD, PhD on 01/09/2017 at 15:17
[2017-01-09] MEDS ORDERED: Albuterol HFA 60 Puff 8 Gm Inhaler INHALATION PRN (16:15)
[2017-01-09] MEDS ORDERED: Albuterol-Ipratropium 120 Spray 4 Gm Inhaler INHALATION PRN (16:35)
[2017-01-09] MEDS: DOBUTamine 500 mg/250 D5W 500,000 MCG in IV Premix 1 EACH IV SCH (17:10)
--- NOTE | 2017-01-09 18:44 | NUR ---
Tele Pt Afib 110-150s, made aware. New orders to stop Dopamine drip for now and monitor pt closely. Dopamine drip stopped. Will report to oncoming RN.
[2017-01-09] MEDS ORDERED: Albuterol HFA 60 Puff 8 Gm Inhaler INHALATION SCH (20:30)
[2017-01-09] MEDS: Fluticasone 100 mCg Inhaler INHALATION SCH (22:28)
[2017-01-10] VITALS (8 sets, daily range): BP systolic 90–131; BP diastolic 63–96; PULSE 84–106; RESP 20–30; O2SAT 93–95
[2017-01-10 04:36] LABS: BASOPHILS % (AUTO) 0.3 % (0-3); EOSINOPHILS % (AUTO) 1.3 % (0-5); MONOCYTES % (AUTO) 23.1 % (4-12); Mean Corpuscular Hemoglobin 30.2 pg (27.0-35.0); Mean Corpuscular Volume 92.5 fL (81-100); NEUTROPHILS % (AUTO) 65.1 % (40-74); Platelet Count 129 bil/L (150-400)
[2017-01-10 04:49] LABS: INR 2.02 ratio
[2017-01-10 04:51] LABS: Phosphorus 4.8 mg/dL (2.5-4.9)
--- NOTE | 2017-01-10 06:48 | NUR ---
Wound care New dressing to incision and LIZZIE drain sites. Pt has poor mobility in bed, difficult to visualize and secure dressing. No drainage from incision site.
--- NOTE | 2017-01-10 08:44 | PCM.PHAPRO ---
Progress Cardiac arrest Date January 09-January 10-January 11-January 12-January 13-January 14-December ###### -December ###### ##### # INR 1.5 1.63 2.02 INR change 0.13 0.39 Warf Dose 2.5 MG 2.5 2.5 Gerard Resendiz S Pharm D January 10, 2017 08:44
[2017-01-10] MEDS: Timolol-Dorzolamide 10 mL Ophthalmic Solution BOTH_EYES SCH ×2 (08:59→21:01)
[2017-01-10] MEDS: Fluticasone 100 mCg Inhaler INHALATION SCH ×2 (08:59→21:17)
[2017-01-10] MEDS: Pantoprazole 20 mg ER24 Tablet PO SCH (08:59)
--- NOTE | 2017-01-10 09:56 | PCM.PNCARD ---
Subjective Date of service January 10, 2017 Chief Complaint Cardiac arrest History of Present Illness I was able to obtain the anesthesiologist's notes and see what was given during her surgery. In the past, she has been given propofol, versed and fentanyl without adverse reactions. But, on the day of her surgery she received etomidate and succinycholine which as per her prior anethesiologist's notes from other surgeries, she has never received these two meds. She has done well and continues to have no complaints of CHF or chest pain. She states that she is feeling weaker in her legs because she has not ambulated since her CPR. Her urine output is still poor but this morning her urine is more clear and she has already made 200 cc compare to a whole 150 cc yesterday. She is on Dobutamine and echocardiogram is pending to re-evaluate her EF. 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 Constitutional: Reports: Weakness, Denies: Fever, Sweats ENT: Denies: Dysphagia, Ear Pain Eyes: Denies: Blurred Vision Cardiovascular: Reports: Rapid Heart Rate, Denies: Chest Pain, Edema, Palpitations, SOB while laying flat Respiratory: Denies: Cough, Shortness of Breath, Wake up SOB Gastrointestinal: Denies: Abdominal Pain, Change in Appetite, Diarrhea, Vomiting Genitourinary: Reports: Change in Frequency, Hematuria (but improving), Denies: No burning or pain with urination Musculoskeletal: Denies: Neck Pain, Shoulder Pain Neurological: Denies: Confusion, Drooping Mouth, Localized Weakness Endocrine: Reports: Blood Glucose Review, Denies: Weight Gain Exam Vital Signs Vital Sign - Last Date Time Temp Pulse Resp B/P Pulse Ox O2 Delivery O2 Flow Rate FiO2 01/10/17 09:00 36.8 106 24 127/75 95 Nasal Cannula 01/10/17 04:21 2.00 Intake and Output 01/09/17 01/09/17 01/10/17 Cumulative From/Thru 15:00 23:00 07:00 01/08/17 12:36 - 01/10/17 06:28 Intake Total 635 ml 695 ml 2017 ml Output Total 120 ml 125 ml 390 ml Balance 515 ml 570 ml 1627 ml Intake Oral 540 ml 600 ml 1590 ml IV Total 95 ml 95 ml 427 ml Output Urine Total 100 ml 100 ml 310 ml Drainage Total 20 ml 25 ml 80 ml General: Pleasant Cooperative Moderately obese Skin: Warm & dry to touch Head: Normocephalic Neck: JVP normal Cardiac: Irregularly irregular rhythm Abdomen: Abdomen soft Obese Neurological: Alert & oriented Psychological: Affect & interaction appropriate Lab and Diagnostics Labs CBC Test 01/09/17 22:50 01/10/17 04:29 Hold Purple Top Tube Received (Received) White Blood Count 7.1th/mm3 (3.8-10.1) Red Blood Count 2.55mil/mm3 (3.90-5.20) Hemoglobin 7.7g/dL (12.0-15.6) Hematocrit 23.6% (35.0-46.0) Mean Corpuscular Volume 92.5fL (81-100) Mean Corpuscular Hemoglobin 30.2pg (27.0-35.0) Mean Corpuscular Hemoglobin Concent 32.6% (32.0-37.0) Red Cell Distribution Width 13.6% (12.3-15.4) Platelet Count 129bil/L (150-400) Neutrophils (%) (Auto) 65.1% (40-74) Lymphocytes (%) (Auto) 9.9% (14-46) Monocytes (%) (Auto) 23.1% (4-12) Eosinophils (%) (Auto) 1.3% (0-5) Basophils (%) (Auto) 0.3% (0-3) CMP Test 01/08/17 16:49 01/09/17 06:00 01/10/17 04:29 Magnesium Level 2.0mg/dL Troponin T 0.132ug/L Pro-B-Type Natriuretic Peptide 65616bd/mL Total Bilirubin 0.5mg/dL Aspartate Amino Transf (AST/SGOT) 258U/L Alanine Aminotransferase (ALT/SGPT) 113U/L Alkaline Phosphatase 86U/L Total Protein 5.6g/dL Albumin 3.1g/dL Sodium Level 131mEq/L Potassium Level 4.8mEq/L Chloride Level 97mEq/L Carbon Dioxide Level 20mmol/L Blood Urea Nitrogen 54mg/dL Creatinine 4.00mg/dL Estimat Glomerular Filtration Rate 15mL/min Glucose Level 104mg/dL Calcium Level 6.6mg/dL Phosphorus Level 4.8mg/dL Result Diagram: 01/10/17 0429 01/10/17 0429 Assessment & Plan Problems: (1) Cardiac arrest as complication of care Plan: Most likely a result of etomidate and succinycholine which can cause shock and bradycardia/hypotension respectively. She is most definitely prone to have these in the setting of her RV failure and pulmonary HTN. She is chronically depedent on her preload. Depressed LVEF is hopefully secondary to stress/CPR. Echo is pending today to re-evaluate her LVEF. May consider stopping her Dobutamine depending on her echocardiogram and urine output. Status: Acute ICD Code: [id number] (2) Acute systolic heart failure Plan: New onset systolic HF. Continue with Dobutamine infusion for now. Maintain MAP > 60 mmHg for current ARF. Stay away from neprhotoxic meds and continue to hold beta blockers for now. Possibly 2/2 to global ischemic process 2/2 CPR. Reassess with echocardiogram today and decide on further management and diagnostic studies. Status: Acute ICD Code: I50.21 (3) Elevated troponin Plan: Most likely result of stress-induced and acute renal failure. Significantly anemia so no Plavix or IV heparin. Plus she has hematuria. Continue with small dose aspirin for now and statins. Status: Acute ICD Code: R74.8 (4) Acute renal failure due to tubular necrosis Plan: Most likely is acute tubular necrosis secondary to hypotension during multiple CPRs. It appears that she might be turning around with mild increase urine output this am. She has yet to be challenged with Bumex IV this am but I will leave this to nephrology. Neprhology is considering hemodialysis. Status: Acute ICD Code: N17.0 (5) Atrial fibrillation Qualifiers: Atrial fibrillation type: paroxysmal Qualified Code: I48.0 - Paroxysmal atrial fibrillation Plan: On warfarin without bridging. Status: Chronic ICD Code: I48.91 Pain Evaluation: Adequate Pain Control VTE Prophylaxis: Sub-Q Heparin (Unfractionated), Other (currently on heparin drip, will continue subcutaneous heparin following discontinuation. ) VTE Mechanical Devices: Intermittant Pneumatic CD Resuscitation Status: CPR: Attempt Resuscitation Stroke Anti-thrombotic Day 2 Antithrombotic Contraindicate: On Warfarin therapy Time spent 20 minutes David Andrade MD January 10, 2017 09:56
[2017-01-10] MEDS ORDERED: Sodium Chloride LOK Flush 10 mL Syringe IVFLUSH PRN ×2 (11:10)
--- NOTE | 2017-01-10 12:52 | DRSVH ---
[facility] [address] [place] [address] Echocardiogram Report Name: JUAN F SELLERS JStudy Date: 01/10/2017 Height: 64 in Hospital Exam Location: [facility] Weight: 217 lb Gender: Female BSA: 2.0 m2 : 1935 Age: 81 yrs BP: 101/80 mmHg Reason For Study: New onset heart failure Ordering Physician: Performed By: Amilcar Motta Interpretation Summary Patient had left sided mastectomy last week; parasternal and apical images were difficulty secondary to patient's bandages and derek. The left ventricular cavity is small. Left ventricular systolic function is normal without focal wall motion abnormalities. The ejection fraction is estimated to be 65-70%. LVEF has improved markedly since last echo ([facility]). Flattened septum is consistent with RV pressure/volume overload. The right ventricle is moderately dilated. Right ventricular systolic function is moderate to severely reduced. Comparing to prior echo reports, this is chronic. The right ventricular systolic pressure is estimated at 76 mmHg assuming a right atrial pressure of 15 mm Hg. Compared to the prior echo exam, there has been no change in the severity of pulmonary hypertension. The left atrium is mildly dilated. The right atrium is severely dilated. There is mild mitral regurgitation. There is moderate tricuspid regurgitation. There is no other significant valvular heart disease. The aortic root is normal size. Procedure: A two-dimensional transthoracic echocardiogram with color flow and Doppler was performed. The study quality was technically difficult. There is no prior echocardiogram noted for this patient. Patient had left sided mastectomy last week; parasternal and apical images were difficulty secondary to patient's bandages and derek. The patient was in atrial fibrillation with heart rates between 80-114 bpm during the exam. Left Ventricle: The left ventricular cavity is small. There is normal left ventricular wall thickness. Left ventricular systolic function is normal without focal wall motion abnormalities. The ejection fraction is estimated to be 65-70%. Flattened septum is consistent with RV pressure/volume overload. Right Ventricle: The right ventricle is moderately dilated. Right ventricular systolic function is moderate to severely reduced. Atria: The left atrium is mildly dilated. The right atrium is severely dilated. There is no Doppler evidence for an atrial septal defect. Mitral Valve: The mitral valve leaflets are mildly calcified. There is mild mitral annular calcification. There is mild mitral regurgitation. Aortic Valve: The aortic valve is not well visualized. There is no hemodynamically significant valvular aortic stenosis. No aortic regurgitation is present. Tricuspid Valve: The tricuspid valve is not well visualized, but is grossly normal. There is moderate tricuspid regurgitation. The right ventricular systolic pressure is estimated at 76 mmHg assuming a right atrial pressure of 15 mm Hg. Compared to the prior echo exam, there has been no change in the severity of pulmonary hypertension. Pulmonic Valve: The pulmonic valve is not well visualized. There is no other significant valvular heart disease. Great Vessels: The aortic root is normal size. The dimensions of the ascending aorta are normal. The pulmonary artery is not well visualized, but is probably normal size. The IVC is dilated (diameter is greater than 2.1 cm) and it collapses less than 50% with a sniff. This suggests a high right atrial pressure of 15 mm Hg. Pericardium/ Pleura There is a trivial pericardial effusion noted. There is no pleural effusion. MMode/2D Measurements & Calculations LA A2 area RA long axis asc Aorta Diam: 3.0 cm RVD1 (basal) Ao Arch Diam (Prox : 5.8 cm RA area Trans): 2.6 cm LA A4 area : 31.6 cm LA length (vol) RA vol: 144.0 ml RA LA vol: 82.9 ml : 71.1 mm2 LA vol index IVC diam: 2.7 cm RVD2 (mid): 4.3 cm Doppler Measurements & Calculations Ao V2 max MV E max neymar Med Peak E' Neymar TR max neymar : 157.6 cm/sec : 123.4 cm/sec : 388.6 cm/sec Ao max PG E/E' med: 35.2 TR max PG : 10.1 mmHg Lat Peak E' Neymar : 60.7 mmHg Ao mean PG E/E' lat: 20.9 LVOT Max Neymar E/e' average: 28.0 : 77.1 cm/sec sev ratio: 0.50 MV V2 mean Ao V2 mean LV V1 max PG : 87.5 cm/sec : 110.4 cm/sec MV mean PG Ao V2 VTI: 23.3 cm LV V1 VTI: 11.6 cm MV V2 VTI: 21.0 cm Reading Physician:PM
--- NOTE | 2017-01-10 14:04 | PCM.PNMED ---
Subjective Date of Service January 10, 2017 Subjective Shonna Buckley is an 81-year-old woman with past medical history significant atrial fibrillation, CHF, pulmonary hypertension in addition to breast cancer bilaterally with recent revision of mastectomy complicated by cardiac arrest, hypotension, and subsequent acute renal failure admitted on transfer from [facility] for further medical management and possible dialysis should renal function continued to decline. Currently under treatment for cardiogenic shock and acute renal failure. Hospital day #3. Overnight: Dobutamine was titrated off yesterday evening. No acute events. Today: The patient states she is feeling somewhat better today. Her surgical wound was stapled yesterday by Dr. Ruvalcaba and her dressing this morning were dry. She was concerned with all her tubbing and equipment, such as pulse oximeter and telemetry box, getting in her way. The remainder of the review of systems is negative except as noted above. Exam Vital Signs Vital Sign - Last Date Time Temp Pulse Resp B/P Pulse Ox O2 Delivery O2 Flow Rate FiO2 01/10/17 11:46 36.9 92 20 116/63 94 Nasal Cannula 2.00 Intake and Output 01/09/17 01/09/17 01/10/17 Cumulative From/Thru 15:00 23:00 07:00 01/08/17 12:36 - 01/10/17 06:28 Intake Total 635 ml 695 ml 2017 ml Output Total 120 ml 125 ml 390 ml Balance 515 ml 570 ml 1627 ml Intake Oral 540 ml 600 ml 1590 ml IV Total 95 ml 95 ml 427 ml Output Urine Total 100 ml 100 ml 310 ml Drainage Total 20 ml 25 ml 80 ml Exam General: Alert, Oriented X3, Cooperative, in no acute distress, laying comfortably in a hospital bed. Eyes: PERRLA, EOMI Mouth: Mucous Membranes moist Chest & Lungs: Clear to auscultation bilaterally, Chest wall demonstrating bilateral deformity due to previous mastectomy. Right side is concave with pectoralis muscles removed, no open lesions or signs of infection. Left side is now status post failed mastectomy with drain in place surgical closure covered by clean dry dressing. All this for small amount of serosanguineous liquid. Cardiovascular: irregular rhythm, mildly tachycardic rate. No murmurs. Abdomen: Non-tender, Other (mildly distended without organomegaly. No guarding) Extremities: No cyanosis/clubbing/edema bilaterally Neurological: Grossly Neurologically Intact IVs and Medications Medications Reviewed: Medications were reviewed in detail Lab and Diagnostics Result Diagram: 01/10/1742801/10/17428 X-Rays, CTs and MRIs X-RAY CHEST ONE VIEW, PORTABLE IMPRESSION: Mild increased pulmonary vascularity with trace effusions suggestive of edema. Cardiomegaly is present. Dictated by: Kristen Augustin M.D. on 01/08/2017 at 17:34 Assessment & Plan Shonna Buckley is an 81-year-old woman with past medical history significant atrial fibrillation, CHF, pulmonary hypertension in addition to breast cancer bilaterally with recent revision of mastectomy complicated by cardiac arrest, hypotension, and subsequent acute renal failure admitted on transfer from [facility] for further medical management and possible dialysis should renal function continued to decline. Currently under treatment for cardiogenic shock and acute renal failure. Hospital day #3. Cardiac arrest complicated by cardiogenic shock, inotrope dependent, present on admission, improving - Dobutamine titrated off. Patient had been started on heparin drip at time of arrest, completed 49 hours. - Cardiology is consulted, Dr Andrade to evaluate patient, awaiting further recommendation. - repeat ECHO today - Continue ASA. Acute on chronic renal failure secondary to ATN secondary to cardiac arrest, present no admission, improving - Patient reported baseline is a creatinine of approximately 1.5 - Nephrology consulted, appreciate the input. - Avoid nephrotoxic agents at this time, hold patient's home lisinopril. - Patient is improving in her urine output. Congestive heart failure with acute reduced ejection fraction, present on admission, ongoing - Continue home medications accept ACEi, beta blockers - Coumadin restarted - Cardiology consult ordered and pending, appreciate recommendations. - Diuresis to be considered as needed - Supplemental oxygen therapy as needed - ECHO pending today Atrial fibrillation, present on admission, ongoing - Patient is now essentially rate controlled - Continue home medications at this time - Monitor on continuous telemetry - Restart Warfarin per pharmacy as noted above Breast cancer status post recent left revision of mastectomy, present on admission, ongoing - Drain remains in place, small amount of serosanguineous fluid draining. - Surgery consulted for wound evaluation. Appreciate time and expertise. Fever, one episode of elevated temp at 39.4, not present on admission, resolved. -Patient does not appear infected. No symptoms noted. White count not elevated. -Procalcitonin will be of minimal use in the setting of severe renal failure. -Will continue to monitor Funguria, present on admission, active -Patient is asymptomatic, doubtful this represents true infection -Will discuss with nephrology about treatment -Usually asymptomatic funguria is not treated unless there is concern for true infection, however in the setting of MARY CARMEN we may elect to treat empirically. Shock liver, secondary to cardiac arrest, present on admission, improving -Continue to monitor Disposition: Anticipate patient will be in the hospital for another 2-3 days as she is evaluated and treated for the above conditions. VTE Prophylaxis: Sub-Q Heparin (Unfractionated), Other (currently on heparin drip, will continue subcutaneous heparin following discontinuation. ) VTE Mechanical Devices: Intermittant Pneumatic CD Resuscitation Status: CPR: Attempt Resuscitation Time spent 35 minutes Attending Statement I interviewed and examined the patient on rounds today. I agree with the assessment and plan as stated above. Awa Murray DO January 10, 2017 13:46 Akira Dyer MD January 10, 2017 18:06
[2017-01-10 14:08] LABS: Bilirubin, Direct < 0.2 mg/dL (0.0-0.3)
--- NOTE | 2017-01-10 14:57 | PCM.PNNEPH ---
Subjective Date of Service January 10, 2017 Subjective Patient was seen and examined and her reviewed plus the case was discussed with Dr. Zavala. The patient has considerable blood loss which is tapered off from her left mastectomy incision. She does have some mild resting dyspnea but denies any headache, chest pain, nausea or vomiting. Her intake and output in the last 24-hour short 955 and 195 and urine output. Her systolic blood pressure has averaged 101 120. This morning her sodium is 131, potassium 4.8, chloride 97, bicarbonate 20, BUN and creatinine were 54 and 4.0. Her hemoglobin today is 8.2. There is some elevation in her liver function studies today. Exam Vital Signs Vital Sign - Last Date Time Temp Pulse Resp B/P Pulse Ox O2 Delivery O2 Flow Rate FiO2 01/10/17 11:46 36.9 92 20 116/63 94 Nasal Cannula 2.00 Intake and Output 01/09/17 01/09/17 01/10/17 Cumulative From/Thru 15:00 23:00 07:00 01/08/17 12:36 - 01/10/17 06:28 Intake Total 635 ml 695 ml 2017 ml Output Total 120 ml 125 ml 390 ml Balance 515 ml 570 ml 1627 ml Intake Oral 540 ml 600 ml 1590 ml IV Total 95 ml 95 ml 427 ml Output Urine Total 100 ml 100 ml 310 ml Drainage Total 20 ml 25 ml 80 ml Exam HEENT examination is remarkable for pale sclera. Neck is supple without adenopathy or thyromegaly. There is some mild venous distention at 90. Lungs showed a few bibasilar rales. Heart was regular and rhythmical with a soft systolic murmur. Abdomen is soft with diminished bowel sounds. There is no tenderness, rebound, guarding, masses, or hepatosplenomegaly. Extremities show any evidence of any clubbing, cyanosis, or edema. Skin turgor is good news no evidence of any rashes. Lab and Diagnostics Result Diagram: 01/10/1742801/10/17428 X-Rays, CTs and MRIs X-RAY CHEST ONE VIEW, PORTABLE IMPRESSION: Mild increased pulmonary vascularity with trace effusions suggestive of edema. Cardiomegaly is present. Dictated by: Kristen Augustin M.D. on 01/08/2017 at 17:34 Plan Impression Impression #1 acute tubular necrosis secondary to hemorrhage/acute blood loss # 2 anemia secondary to acute blood loss #3 metabolic acidosis secondary to acute kidney injury Recommendations #1 bilateral try giving her an additional dose of furosemide and of her renal function continues to deteriorate consider doing dialysis. Wenceslao Woods DO January 10, 2017 14:57
[2017-01-10] MEDS ORDERED: FUROSEMIDE IVPUSH SCH ×2 (15:00→23:14)
[2017-01-10] MEDS ORDERED: Furosemide 10 mg/mL 10 mL Inj IVPUSH SCH (15:00)
--- NOTE | 2017-01-10 17:14 | NUR ---
spiritual care: pt request brief visit. pt shared brief report, introduced her family. connected to [facility]
--- NOTE | 2017-01-10 17:39 | NUR ---
Activity/Constipation asked pt if willing to stand to [facility]. Pt able to sit herself to the side of the bed with one person assist however unable to stand. Stating feeling winded and weak. Respiration in the 30s with activity. Pt resting in bed at this time with no complaints. No signs of respiratory distress. No BM since 01-05-17 will give miralax. Ongoing care.
[2017-01-11 03:22] VITALS: BP 107/51; PULSE 74; RESP 28; O2SAT 96
[2017-01-11 03:43] LABS: INR 2.47 ratio
--- NOTE | 2017-01-11 05:09 | NUR ---
Activity Patient wants to sits at the edge of the bed, needs a one person assist to get to the edge and a two person assist to get back to bed. Patient able to assist only minimally with turns in bed. Patient denies pain and declines pain medication. Turned patient for comfort; she did refuse at times and wanted to stay in the supine position. IV Lasix given once as ordered. Pt had a total of 450ml out for overnight cashier.
[2017-01-11 06:22] LABS: BASOPHILS % (AUTO) 0.1 % (0-3); EOSINOPHILS % (AUTO) 1.5 % (0-5); MONOCYTES % (AUTO) 23.7 % (4-12); Mean Corpuscular Hemoglobin 29.8 pg (27.0-35.0); Mean Corpuscular Volume 90.5 fL (81-100); Platelet Count 167 bil/L (150-400)
[2017-01-11 08:00] VITALS: BP 91/58
[2017-01-11] MEDS ORDERED: Propofol Inj 1,000,000 MCG in IV Premix 1 EACH IV SCH (08:18)
[2017-01-11] MEDS ORDERED: fentaNYL 2,500 mCg/250 mL 2,500 MCG in IV Premix 1 EACH IV SCH (08:18)
[2017-01-11] MEDS ORDERED: Propofol 10,000 mCg/mL 100 mL Inj ONE (08:21)
[2017-01-11] MEDS ORDERED: fentaNYL 2,500 mCg/250 mL Premix IV ONE (08:22)
[2017-01-11 08:27] LABS: BASOPHILS % (AUTO) 0.3 % (0-3); EOSINOPHILS % (AUTO) 1.1 % (0-5); MONOCYTES % (AUTO) 13.1 % (4-12); Mean Corpuscular Hemoglobin 29.5 pg (27.0-35.0); Mean Corpuscular Volume 93.3 fL (81-100); NEUTROPHILS % (AUTO) 60.9 % (40-74); Platelet Count 159 bil/L (150-400)
[2017-01-11 08:53] LABS: Magnesium 3.1 mg/dL (1.6-2.6); Phosphorus 7.6 mg/dL (2.5-4.9)
--- NOTE | 2017-01-11 09:04 | ABG ---
DateTimeAnalyzed 08:59:00 -_ pH ____7.078 - 7.350 7.450 pCO2 ___45.4__ -mmHg 35.0 45.0 pO2 102 -mmHg 69.0 116 HCO3- ___12.8__ -mmol/L 22.0 26.0 ABE __-16.2__ -mmol/L -2.0 2.0 tHb ____9.4__ -g/dL O2Hb ___92.9__ -% COHb ____0.6__ -% MetHb ____1.0__ -% sO2 ___94.4__ -% FIO2 __100.0__ -% PRVC 420 - PEEP ____5.0__ -cmH2O Set_RR ___24.0__ -b/min Vt __420.0__ -L Drawn By NB - Date/Time Notified____ 09:04:00 -_ Spontaneous_RR ___26.0__ -b/min Oxygen Device 1 VENTILATOR - Notified By NB - Notified Whom ___DR. KENDREGAN - B 758 -mmHg tO2 ___12.5__ -Vol% Alvarado test N/A -
--- NOTE | 2017-01-11 09:20 | DRSVH ---
PROCEDURE: X-RAY CHEST ONE VIEW, PORTABLE ([id number]) INDICATIONS: respiratory failure TECHNIQUE: One view of the chest was acquired. COMPARISON: [facility], CR, XR CHEST 1VW (PORTABLE), 01/08/2017, 16:30. FINDINGS: Surgical changes and devices: Interval intubation with ET tube 4 CM above the ana m. Enteric tube wi th tip in the proximal stomach. PICC tip in the upper SVC. Cardiac transcutaneous pacer. Lungs and pleura: Small pleural effusions left greater than right. Progressing bibasilar pulmonary o pacities. New left suprahilar pulmonary opacity. Mediastinum: Mediastinal contours are stable. Bones and chest wall: No suspicious bony lesions. Overlying soft tissues appear unremarkable. IMPRESSION: 1. New ET tube, enteric tube, and right-sided PICC in appropriate locations. 2. New left suprahilar pulmonary opacity may represent contusion in the setting of chest compressions , supine aspiration, or infection. 3. Small pleural effusions too small for percutaneous sampling. Dictated by: Fran Dumont M.D. on 01/11/2017 at 9:10 Approved by: Fran Dumont M.D. on 01/11/2017 at 9:13
--- NOTE | 2017-01-11 09:36 | PCM.EDPN ---
ED Note Date of Service January 11, 2017 CODE SARAHI called in ICU responded to assist. asked to help with airway management/intubation Procedures Intubation : Time: 07:40 Procedure Performed by: ED physician Consent / Setup / Site Prep: No consent - emergent, Oxygen administered ( bagging with oral airway in place prior to intubation ), Pulse oximeter applied , monitor tech applied Patient Position: Neutral position (initially due to ongoing CPR. Airway very anterior. Stopped this attempt, repositioned in sniff position with continued CPR) Blade / ET Tube / Route: [place] scope ET Confirmation: Direct visualization, BS equal, End tidal CO2 device Secured / Marked: ET tube device Complications: Bradycardia (2nd attempt was able to visualize cords but still very anterior. Bugee used, with difficulty got it into trachea and then 7.5 tube advanced into airway with out difficulty) Tamy Lamra MD January 11, 2017 09:36
--- NOTE | 2017-01-11 09:49 | NUR ---
code/transfer/code/expiration 0740 upon initial assessment pt has a bradycardic/PEA code see code documentation. 0802 ROSC acheived 8015 Pt transfered to CCU, I remained the primary RN. 0828 Pt codes again, 0843 ROSC acheived. [address] Ruiz. Decision reached to make pt a DNR/DNI.0920 pt bradycardic in the 30's ETCOT 8. Family informed that she is very close to expiration. Family at bedside tearful and saying goodbyes. Time of 926. No bloodpressure, no electrical activity on monitor, no palpable pulse. Equipment turned off, family given privacy to grieve.
--- NOTE | 2017-01-11 10:33 | NUR ---
7895 -Called to Code Blue in pt. room. Pt. bagged with Ambu bag @ 100%. Oral AW placed. Assisted ED Physician with intubation. BS checked, Color change noted on ETCO2 detector. Tube secured. Pt. sshelli'd. Airway patent. Pt. transferred to Room 2015 and placed on vent. RT at bedside.
--- NOTE | 2017-01-11 14:47 | PCM.DC.MEX ---
Discharge Summary Date of Service January 11, 2017 Dates of Hospitalization Date of Hospital Admission January 08, 2017 at 12:18 Date of Expiration: January 11, 2017 Time of Expiration: 09:27 Providers: Admitting Physician: Roderick Levine DO Primary Care Physician: Bari Monson MD Attending Physician: Roderick Levine DO Diagnosis at Time of #1 Cardiac arrest; bradycardia with pulseless electrical activity - duration 2 hours #2 Acute renal failure with oliguria - duration 5 days #3 Perioperative cardiac arrest with bradycardia - duration 5 days #4 Pulmonary hypertension - duration years Consultations Cardiology - Dr. Brigid Andrade Nephrology Dr. Brenna Irving . Procedures XRay, CTs & MRIs X-RAY CHEST ONE VIEW, PORTABLE IMPRESSION: Mild increased pulmonary vascularity with trace effusions suggestive of edema. Cardiomegaly is present. Dictated by: Kristen Augustin M.D. on 01/08/2017 at 17:34 Brief History History of Present Illness (per admission cardiology note, Dr. Andrade): This is a very pleasant 81-year-old female with history of paroxysmal atrial fibrillation, polymyositis. She denies she has any history of coronary disease or congestive heart failure. However she does take chronic high dose of torsemide on a daily basis. She is on warfarin for her atrial fibrillation. She sees a supervisor salvage at [facility]. She was last seen by him about a week before her elective surgery for reconstructive surgery of her left status post mastectomy. The patient apparently had an echocardiogram prior to her surgery and she was told that her heart function was normal. The patient denied any history of PND, orthopnea, but did have some slight worsening of her lower extremity edema just prior to her surgery. She also denied any chest pain or exertional shortness of breath just prior to her surgery. She states that she was feeling pretty well. The patient is recently had her mastectomy back in July 2016 without any complications. The patient went for her reconstructive surgery of her skin fold of the left axilla. During her surgery she apparently developed severe bradycardia and became pulseless. CPR was initiated and the patient's pulses were restored. Her wound area was then rapidly close but toward the end of the surgery she developed another episode of bradycardia and required chest compressions and additional medical therapies. At this time I do not have access to the anesthesiologist notes her EKG strips. Her pulse was regained with a heart rate of 50 bpm. Hospitalist was consulted and the patient was transferred to ICU. Apparently the patient was placed on epinephrine drip and she was continued on ventilation. An echocardiogram was performed which apparently was a poor quality echocardiogram. Nevertheless there appear to be a severe reduction in her left ventricular systolic function with an estimated ejection fraction of 20%. The right ventricle was not clearly visualized but appear to be dilated with reduced right ventricular systolic function. She has no significant valvular disease except for moderate tricuspid regurgitation. There is evidence for severe right ventricular systolic pressures with estimated RV systolic pressures estimated at 75 mmHg. Again I do not have any prior echocardiogram for comparison. Apparently she developed significant arrhythmias with norepinephrine and she was started on or switched over to dobutamine. Since then she has maintained pretty good blood pressure and her atrial fibrillation has been fairly controlled. Unfortunately she has developed acute renal failure most likely related to her transient severe hypotension and decreased cardiac output. Hospital Course #1 Cardiac arrest complicated by cardiogenic shock, inotrope dependent, present on admission. Treated with dobutamine, she was ambulatory conversant and generally improving until morning of her demise. At that time she was communicative but subsequently developed bradycardia, hypotension and loss of consciousness. EUGENIA MCCLAIN was called and she received ACLS therapy for bradycardia, pulseless electrical activity, subsequently felt to have wide complex tachycardia and treated with cardioversion and amiodarone, subsequently relapsed into bradycardic PEA. Initially resuscitated successfully after 30 minutes of CPR and stabilized on epinephrine infusion. Approximately 30 minutes later she relapsed and received additional ACLS therapy for bradycardia and pulseless electrical activity. Again she was stabilized on high dose epinephrine drip and mechanical ventilation. He subsequently relapsed into hypotension and bradycardia which time family gathered at bedside and elected for comfort measures. #2 Acute on chronic renal failure secondary to ATN secondary to cardiac arrest, present no admission. Serum creatinine 3.43 on admission, oliguria and increased creatinine to 5.58 prior to . Serum potassium 5.12 and serum sodium 125 in the morning prior to her demise. #3 Acute systolic Congestive heart failure with acute reduced ejection fraction , present on admission, ongoing. Perioperative echocardiogram at the time of her perioperative cardiac arrest revealed acute systolic CHF. Repeat echocardiogram after transfer to [facility] revealed preserved systolic function but severe right-sided heart failure and pulmonary hypertension. The etiology of her pulmonary hypertension was uncertain. She was treated with dobutamine. #4 Atrial fibrillation, present on admission. She continued on anticoagulation #5 Breast cancer status post recent left revision of mastectomy, present on admission, ongoing - Surgery consulted for wound evaluation. Appreciate time and expertise. #6 Fever, one episode of elevated temp at 39.4, not present on admission, resolved. No clinical evidence of focal bacterial infection. #7 Funguria, present on admission, active. No symptoms. -Not clinically significant #8 Shock liver, secondary to cardiac arrest, present on admission. Mild. Peak ALT 1 4200 admission with subsequent improvement. Exam Test 01/08/17 16:49 01/08/17 21:13 01/09/17 22:50 01/10/17 04:29 D-Dimer 2.00mg/L FEU (<0.50) Troponin T 0.132ug/L (0.0-0.011) Pro-B-Type Natriuretic Peptide 65270ie/mL (0-738) Urine Color Bloody (YELLOW) Urine Appearance Cloudy (CLEAR,HAZY) Urine pH 6.5 (5.0-8.0) Urine Specific [place] 1.025 (1.003-1.035) Urine Protein 300mg/dL (NEG,TRACE) Urine Glucose (UA) 100mg/dL (NEGATIVE) Urine Ketones Tracemg/dL (NEGATIVE) Urine Occult Blood Large (NEGATIVE) Urine Nitrite Positive (NEGATIVE) Urine Bilirubin Negative (NEGATIVE) Urine Urobilinogen 1.0mg/dL (NORMAL) Urine Leukocyte Esterase Trace (NEGATIVE) Urine RBC 11-50/hpf (0-2) Urine WBC 6-10/hpf (0-5) Urine Epithelial Cells None/hpf (NONE-MOD) Urine Crystals None seen (NONE SEEN) Urine Bacteria Few/hpf (NONE-FEW) Urine Hyaline Casts None/lpf (NONE) Urine Granular Casts None seen (NONE SEEN) Urine Waxy Casts None seen (NONE SEEN) Urine Red Blood Cell Casts None seen (NONE SEEN) Urine White Blood Cell Casts None seen (NONE SEEN) Urine Mucus None seen (None Seen) Urine Trichomonas None seen (NONE SEEN) Urine Yeast None (NONE SEEN) Urinalysis Comment None Urine Culture Reflexed Indicated Hold Purple Top Tube Received (Received) Direct Bilirubin < 0.2mg/dL (0.0-0.3) Test 01/11/17 03:15 01/11/17 08:20 Prothrombin Time 26.9sec (8.1-12.5) Prothromb Time International Ratio 2.47ratio White Blood Count 7.6th/mm3 (3.8-10.1) Red Blood Count 3.12mil/mm3 (3.90-5.20) Hemoglobin 9.2g/dL (12.0-15.6) Hematocrit 29.1% (35.0-46.0) Mean Corpuscular Volume 93.3fL (81-100) Mean Corpuscular Hemoglobin 29.5pg (27.0-35.0) Mean Corpuscular Hemoglobin Concent 31.6% (32.0-37.0) Red Cell Distribution Width 13.6% (12.3-15.4) Platelet Count 159bil/L (150-400) Neutrophils (%) (Auto) 60.9% (40-74) Lymphocytes (%) (Auto) 22.9% (14-46) Monocytes (%) (Auto) 13.1% (4-12) Eosinophils (%) (Auto) 1.1% (0-5) Basophils (%) (Auto) 0.3% (0-3) Sodium Level 127mEq/L (134-144) Potassium Level 5.3mEq/L (3.5-5.2) Chloride Level 90mEq/L (97-108) Carbon Dioxide Level 14mmol/L (18-29) Blood Urea Nitrogen 69mg/dL (8-27) Creatinine 5.58mg/dL (0.57-1.00) Estimat Glomerular Filtration Rate 10mL/min (>59) Glucose Level 165mg/dL (60-99) Lactic Acid Level 7.2mmol/L (0.4-2.0) Calcium Level 8.2mg/dL (8.5-10.1) Phosphorus Level 7.6mg/dL (2.5-4.9) Magnesium Level 3.1mg/dL (1.6-2.6) Total Bilirubin 0.4mg/dL (0.0-1.2) Aspartate Amino Transf (AST/SGOT) 188U/L (0-50) Alanine Aminotransferase (ALT/SGPT) 72U/L (0-32) Alkaline Phosphatase 158U/L (25-165) Total Protein 5.5g/dL (6.4-8.4) Albumin 2.9g/dL (3.4-5.0) Time spent 90 minutes copies to: Bari Monson MD, Jeffrey W MD January 11, 2017 14:47
== END 2017-01-11 09:27 | disposition expired | DRG 682 ==
LOC: PCC 12:18 → CCU 01-11 08:12
PROVIDERS: ADMIT Family Medicine; ATTEND Family Medicine
PROC: 5A1935Z Respiratory Ventilation, Less than 24 Consecutive Hours (ICD-10-PCS; principal; 2017-01-11)
PROC: 0BH17EZ Insertion of Endotracheal Airway into Trachea, Via Natural or Artificial Opening (ICD-10-PCS; 2017-01-11)
PROC: 4A033R1 Measurement of Arterial Saturation, Peripheral, Percutaneous Approach (ICD-10-PCS; 2017-01-11)
PROC: 5A12012 Performance of Cardiac Output, Single, Manual (ICD-10-PCS; 2017-01-11)
DX: N17.0 Acute kidney failure with tubular necrosis (principal); I50.21 Acute systolic (congestive) heart failure; K72.00 Acute and subacute hepatic failure without coma; T81.11XA Postprocedural cardiogenic shock, initial encounter; I27.0 Primary pulmonary hypertension; E87.1 Hypo-osmolality and hyponatremia; E87.2 Acidosis; D62 Acute posthemorrhagic anemia; I97.711 Intraoperative cardiac arrest during other surgery; Z90.13 Acquired absence of bilateral breasts and nipples; N18.9 Chronic kidney disease, unspecified; C50.919 Malignant neoplasm of unspecified site of unspecified female breast; Z79.01 Long term (current) use of anticoagulants; I48.0 Paroxysmal atrial fibrillation; E87.5 Hyperkalemia; I46.9 Cardiac arrest, cause unspecified